=== PATIENT | female | born 1955 | race Caucasian/White ===

== ENCOUNTER 2022-09-16 06:02 | Day surgery (SDC) | payer MEDICARE, OTHER ==
[2022-09-14 16:16] LABS: BASOPHILS # (AUTO) 0.1 X10'3 (0-0.2); BASOPHILS % (AUTO) 0.7 % (0-1); EOSINOPHILS # (AUTO) 0.3 X10'3 (0-0.9); EOSINOPHILS % (AUTO) 4.2 % (0-6); LYMPHOCYTES # (AUTO) 1.8 X10'3 (1.1-4.8); LYMPHOCYTES % (AUTO) 22.7 % (21-51); MEAN CORPUSCULAR HEMOGLOBIN 30.3 PG (27.0-31.0); MEAN CORPUSCULAR HGB CONC 33.1 g/dL (33.0-36.5); MEAN CORPUSCULAR VOLUME 91.4 FL (78-98); MEAN PLATELET VOLUME 8.1 FL (7.4-10.4); MONOCYTES # (AUTO) 0.8 X10'3 (0-0.9); NEUTROPHILS % (AUTO) 62.4 % (42-75); PRE OP HEMATOCRIT 31.3 % (35.0-45.0); PRE OP PLATELET COUNT 221 X10'3 (140-440); RED BLOOD COUNT 3.42 X10'6 (4.20-5.60); RED CELL DISTRIBUTION WIDTH 13.2 % (11.5-14.5)
[2022-09-14 16:17] LABS: PRE OP HEMOGLOBIN 10.3 g/dL (12.0-16.0)
[2022-09-14 16:48] LABS: CLARITY,URINE SLIGHTLY CLOUDY (Clear); COLOR,URINE YELLOW (Yellow); GLUCOSE, URINE NEGATIVE (Neg); KETONES,URINE NEGATIVE (Neg); LEUKOCYTE ESTERASE ,URINE NEGATIVE (Neg); NITRITES, URINE NEGATIVE (Neg); OCCULT BLOOD,URINE NEGATIVE (Neg); PROTEIN,URINE 100 mg/dl (Neg); UA COLLECTION TYPE CLN CATCH MIDSTREAM; UROBILINOGEN,URINE 0.2 E.U/dL (0.2-1.0)
[2022-09-14 16:55] LABS: HYALINE CASTS 0-3 /LPF (NEGATIVE); MUCUS STRANDS FEW /LPF (Neg); SQUAMOUS EPITHELIAL CELL,UR MANY /LPF (FEW)
[2022-09-14 16:56] LABS: BACTERIA,URINE FEW /HPF (Neg); RBC,URINE 0-2 /HPF (0-2); WBC,URINE 0-4 /HPF (0-4)
[2022-09-14 16:58] LABS: ALBUMIN 3.8 G/DL (3.4-5.0); ALBUMIN/GLOBULIN RATIO 1.2 (1.1-1.5); ALKALINE PHOSPHATASE 75 IU/L (46-116); BLOOD UREA NITROGEN 39 MG/DL (7-18); BUN/CREATININE RATIO 11.6 (6.6-38.0); CALCIUM 9.7 MG/DL (8.5-10.1); CREATININE 3.37 MG/DL (0.40-0.90); PRE OP ALT 28 U/L (30-65); PRE OP AST 34 U/L (10-37); PRE OP BILIRUB, TOTAL 0.4 MG/DL (0.0-1.0); PRE OP GLUCOSE 103 MG/DL (70-104); TOTAL CARBON DIOXIDE 18.4 MMOL/L (24-32); TOTAL PROTEIN 7.1 G/DL (6.4-8.2); eGFR 14 ML/MIN
[2022-09-14 17:11] LABS: CHLORIDE 106 MMOL/L (99-107); PRE OP ANION GAP 12 (8-16); PRE OP POTASSIUM 4.6 MMOL/L (3.4-5.1); PRE OP SODIUM 136 MMOL/L (135-145)
[2022-09-16] VITALS (13 sets, daily range): BP systolic 95–130; BP diastolic 52–71
[~2022-09-16] VITALS: Ht 172.7 cm; Wt 82.3 kg
[~2022-09-16 06:02] MED LIST: ACET-1008 PO; ACET-1059 PO; DOCUMENT DATE & TIME OF BETA-BLOCKER PO ONE; ERGO500054 PO; FURO40TA4 PO; HYDR-4070 PO; LABE100T8 PO; LISI40TA13 PO; ROSU40TA PO; SERT50TA PO; TRAZ-256 PO; clindamycin-Cleocin 900mg/D5W 50 ML IV ONE; famotidine 20mg tablet PO ONE; normal saline 500ml IV soln 500 ML IV SCH
[2022-09-16] MEDS ORDERED: BUPIVAcaine 0.5% inj/PF 0 ML ONE (08:45)
[2022-09-16] MEDS ORDERED: LIDOcaine 1% 30ml preserv. free vial ONE (08:45)
[2022-09-16] MEDS ORDERED: heparin 10,000 units/1 ML INJ ONE (08:45)
[2022-09-16] MEDS ORDERED: ondansetron/PF 4mg/2ml inj ONE (09:11)
[2022-09-16] MEDS ORDERED: sevoflurane 250ml liquid IH ONE (09:11)
[2022-09-16] MEDS ORDERED: dexamethasone sod phosphate 10mg/ml inj ONE (09:11)
[2022-09-16] MEDS ORDERED: FENTANYL CITRATE/PF 50 MCG/1 ML VIAL ONE (09:18)
[2022-09-16] MEDS ORDERED: midazolam 1 mg/ML 2ml injection ONE (09:19)
[2022-09-16] MEDS ORDERED: heparin 10,000 units/1 ML INJ IR ONE (09:53)
[2022-09-16] MEDS ORDERED: morphine 4 MG/ML inj SYRINge IV PRN (10:10)
[2022-09-16] MEDS ORDERED: ondansetron/PF 4mg/2ml inj IV PRN (10:10)
[2022-09-16] MEDS ORDERED: proCHLORperazine 10 MG/2 ml inj IV PRN (10:10)
[2022-09-16] MEDS ORDERED: ringers solution, lacted 1,000 ML IV SCH (10:10)
[2022-09-16] MEDS ORDERED: morphine 2 MG/ML inj. syringe IV PRN (10:10)
[2022-09-16] MEDS ORDERED: meperidine/PF 25mg/ml syringe IV PRN ×2 (10:10)
[2022-09-16] MEDS ORDERED: ePHEDrine 50MG/ML INJ. ONE (11:03)
[2022-09-16] MEDS ORDERED: propofol inj 20 ML IV ONE (11:03)
[2022-09-16] MEDS ORDERED: heparin 1,000unit/ml 10ml vial 10 ML ONE (11:03)
[2022-09-16] MEDS ORDERED: bacitracin 15gm ointment TP ONE (11:04)
--- NOTE | 2022-09-16 11:20 | NUR ---
Received from OR via [facility], accompanied by Anesthesiologist DR MAXWELL and report given by Anesthesiolgist. PT HAS LMA IN PLACE UPON ARRIVAL FROM OR, ANESTHESIA AT BEDSIDE AND D/C'D. PT PLACED ON BEDSIDE MONITOR, VSS. PT IN SR WITH RATE IN 80'S. PT RECEIVING 8L 02 TO MASK AND TOLERATING WELL WITH O2 SAT >96%. PT IS GROGGY BUT ABLE TO FOLLOW COMMANDS AND ANSWERERS QUESTIONS APPROPRIATELY. PT HAS 20G PIV TO RT HAND WITH NS INFUSING ORDERED. PT HAS DRSG TO LEFT WRIST THAT HAS SCANT AMOUNT OF DRAINAGE NOTED AND HAS BEEN MARKED. PT DENIES PAIN AT THIS TIME. WILL CONTINUE TO ASSESS.
[2022-09-16] MEDS: meperidine/PF 25mg/ml syringe IV PRN ×2 (11:53→12:08)
[2022-09-16] MEDS ORDERED: HYDROcodone/acetaminophen 10/325mg tab PO ONE (12:40)
--- NOTE | 2022-09-16 13:56 | NUR ---
ABLE TO SAFELY AMBULATE AND TRANSFER SELF. IV TAKEN OUT WITHOUT ANY COMPLICATIONS. ALL DISCHARGE INSTRUCTIONS COVERED WITH PATIENT AND ALL QUESTIONS ANSWERED. PATIENT TAKEN OUT VIA WHEELCHAIR TO PERSONAL VEHICLE WHERE FAMILY/FRIEND DROVE PATIENT HOME.
== END 2022-09-16 13:54 | disposition home or self-care (01) ==
LOC: PAS 06:02
PROVIDERS: ATTEND Surgery
DX: I12.0 Hypertensive chronic kidney disease with stage 5 chronic kidney disease or end stage renal disease (principal); N18.6 End stage renal disease; F41.9 Anxiety disorder, unspecified; F32.A Depression, unspecified; G43.909 Migraine, unspecified, not intractable, without status migrainosus; J45.909 Unspecified asthma, uncomplicated; E21.1 Secondary hyperparathyroidism, not elsewhere classified; Z87.891 Personal history of nicotine dependence; Z98.890 Other specified postprocedural states; Z88.0 Allergy status to penicillin; Z88.1 Allergy status to other antibiotic agents; Z88.8 Allergy status to other drugs, medicaments and biological substances; Z80.49 Family history of malignant neoplasm of other genital organs; Z90.710 Acquired absence of both cervix and uterus; Z98.49 Cataract extraction status, unspecified eye; Z79.899 Other long term (current) drug therapy
CPT/HCPCS: 36415; 36830; 80053; 81001; 82948; 85025; C1757; J1100; J1644; J2175; J2250; J2405; J2704; J3010; J3490; J7030; J7040; J7120; Z7506; Z7508; Z7512; A4215; A4618; A7000; S0020

== ENCOUNTER 2022-10-07 08:46 | Day surgery (SDC) | payer MEDICARE, OTHER ==
[2022-09-29 13:59] LABS: CLARITY,URINE SLIGHTLY CLOUDY (Clear); COLOR,URINE YELLOW (Yellow); GLUCOSE, URINE NEGATIVE (Neg); KETONES,URINE NEGATIVE (Neg); LEUKOCYTE ESTERASE ,URINE NEGATIVE (Neg); NITRITES, URINE NEGATIVE (Neg); OCCULT BLOOD,URINE NEGATIVE (Neg); PROTEIN,URINE >=300 mg/dl (Neg); UROBILINOGEN,URINE 0.2 E.U/dL (0.2-1.0)
[2022-09-29 14:03] LABS: UA COLLECTION TYPE CLN CATCH MIDSTREAM
[2022-09-29 14:06] LABS: BASOPHILS # (AUTO) 0.1 X10'3 (0-0.2); BASOPHILS % (AUTO) 0.8 % (0-1); EOSINOPHILS # (AUTO) 0.4 X10'3 (0-0.9); EOSINOPHILS % (AUTO) 5.2 % (0-6); LYMPHOCYTES # (AUTO) 2.1 X10'3 (1.1-4.8); LYMPHOCYTES % (AUTO) 24.5 % (21-51); MEAN CORPUSCULAR HEMOGLOBIN 29.5 PG (27.0-31.0); MEAN CORPUSCULAR HGB CONC 32.4 g/dL (33.0-36.5); MEAN CORPUSCULAR VOLUME 91.3 FL (78-98); MEAN PLATELET VOLUME 8.2 FL (7.4-10.4); MONOCYTES # (AUTO) 0.9 X10'3 (0-0.9); MONOCYTES % (AUTO) 10.6 % (2-12); NEUTROPHILS % (AUTO) 58.9 % (42-75); PRE OP HEMATOCRIT 31.9 % (35.0-45.0); PRE OP PLATELET COUNT 203 X10'3 (140-440); RED CELL DISTRIBUTION WIDTH 13.6 % (11.5-14.5)
[2022-09-29 14:10] LABS: BACTERIA,URINE FEW /HPF (Neg); RBC,URINE 0-2 /HPF (0-2); SQUAMOUS EPITHELIAL CELL,UR MODERATE /LPF (FEW); WBC,URINE 0-4 /HPF (0-4)
[2022-09-29 14:11] LABS: PRE OP HEMOGLOBIN 10.3 g/dL (12.0-16.0)
[2022-09-29 14:11] LABS: HYALINE CASTS 0-3 /LPF (NEGATIVE); MUCUS STRANDS NONE SEEN /LPF (Neg); TRANSITIONAL EPI CELLS,URINE FEW /HPF
[2022-09-29 14:19] LABS: ALBUMIN 3.8 G/DL (3.4-5.0); ALBUMIN/GLOBULIN RATIO 1.1 (1.1-1.5); ALKALINE PHOSPHATASE 88 IU/L (46-116); BLOOD UREA NITROGEN 42 MG/DL (7-18); BUN/CREATININE RATIO 13.2 (6.6-38.0); CALCIUM 9.6 MG/DL (8.5-10.1); CHLORIDE 109 MMOL/L (99-107); CREATININE 3.17 MG/DL (0.40-0.90); PRE OP ALT 25 U/L (30-65); PRE OP ANION GAP 13 (8-16); PRE OP AST 23 U/L (10-37); PRE OP BILIRUB, TOTAL 0.3 MG/DL (0.0-1.0); PRE OP GLUCOSE 94 MG/DL (70-104); PRE OP POTASSIUM 4.4 MMOL/L (3.4-5.1); PRE OP SODIUM 141 MMOL/L (135-145); TOTAL CARBON DIOXIDE 18.6 MMOL/L (24-32); TOTAL PROTEIN 7.2 G/DL (6.4-8.2); eGFR 15 ML/MIN
[2022-10-07] VITALS (13 sets, daily range): BP systolic 109–146; BP diastolic 37–85
[~2022-10-07] VITALS: Ht 172.7 cm; Wt 82.0 kg
[~2022-10-07 08:46] MED LIST changes: +LIDOcaine 1% (10mg/ml) 2ml vial SQ ONE; +ceFAZolin inj. 2,000 MG in dextrose 5%-water 100 ML IV ONE; -normal saline 500ml IV soln 500 ML IV SCH; +ringers solution, lacted 1,000 ML IV SCH
[2022-10-07] MEDS ORDERED: normal saline 500ml IV soln 1,000 ML IV SCH (09:35)
[2022-10-07] MEDS ORDERED: LIDOcaine 1% 30ml preserv. free vial ONE (12:10)
[2022-10-07] MEDS ORDERED: BUPIVAcaine/PF 5 mg/ml 10ml ONE (12:12)
[2022-10-07] MEDS ORDERED: sevoflurane 250ml liquid IH ONE (12:40)
[2022-10-07] MEDS ORDERED: midazolam 1 mg/ML 2ml injection ONE (12:48)
[2022-10-07] MEDS ORDERED: fentaNYL/PF 50MCG/1 ML 2ML syringe ONE (12:56)
[2022-10-07] MEDS ORDERED: propofol inj 20 ML IV ONE (13:01)
[2022-10-07] MEDS ORDERED: 0.9 % SODIUM CHLORIDE 10 ML VIAL ONE (13:01)
[2022-10-07] MEDS ORDERED: heparin 10,000 units/1 ML INJ ONE (13:01)
[2022-10-07] MEDS ORDERED: dexamethasone sod phosphate 4mg/ml inj. ONE (13:02)
[2022-10-07] MEDS ORDERED: ondansetron/PF 4mg/2ml inj ONE (13:02)
[2022-10-07] MEDS ORDERED: ePHEDrine 50MG/ML INJ. ONE (13:02)
[2022-10-07] MEDS ORDERED: LIDOcaine 2% (20mg/ml) 5ml vial ONE (13:02)
[2022-10-07] MEDS ORDERED: heparin 1,000unit/ml 10ml vial 0 ML ONE (13:15)
[2022-10-07] MEDS ORDERED: ondansetron/PF 4mg/2ml inj IV PRN (14:05)
[2022-10-07] MEDS ORDERED: hydrALAZINE 20mg/ml inj. IV PRN (14:05)
[2022-10-07] MEDS ORDERED: HYDROmorphone/PF 0.2 MG/ML SYRINGE IV PRN (14:05)
[2022-10-07] MEDS ORDERED: labetalol 20mg/4ml (5mg/ml) syringe IV PRN (14:05)
[2022-10-07] MEDS ORDERED: morphine 2 MG/ML inj. syringe IV PRN (14:05)
[2022-10-07] MEDS ORDERED: proCHLORperazine 10 MG/2 ml inj IV PRN (14:05)
[2022-10-07] MEDS ORDERED: acetaminophen 1,000mg/100ml IV 100 ML IV PRN (14:05)
[2022-10-07] MEDS ORDERED: ringers solution, lacted 1,000 ML IV SCH (14:05)
--- NOTE | 2022-10-07 14:05 | NUR ---
PT IS ABLE TO SAFELY AMBULATE AND TRANSFER SELF. IV TAKEN OUT WITHOUT ANY COMPLICATIONS. ALL DISCHARGE INSTRUCTIONS COVERED WITH PATIENT AND ALL QUESTIONS ANSWERED. PATIENT TAKEN OUT VIA WHEELCHAIR TO PERSONAL VEHICLE WHERE DROVE PATIENT HOME. Addendum: 10/07/22 at 1705 by Brittney De La Cruz RN DISCHARGE NOTE 1605- PT IS ABLE TO SAFELY AMBULATE AND TRANSFER SELF. IV TAKEN OUT WITHOUT ANY COMPLICATIONS. ALL DISCHARGE INSTRUCTIONS COVERED WITH PATIENT AND ALL QUESTIONS ANSWERED. PATIENT TAKEN OUT VIA WHEELCHAIR TO PERSONAL VEHICLE WHERE DROVE PATIENT HOME.
--- NOTE | 2022-10-07 14:15 | NUR ---
Received from OR via [facility], accompanied by Anesthesiologist DR CRUZ and report given by Anesthesiolgist. PT GROGGY BUT RESPONDS TO VERBAL STIMULI. PT PLACED ON BEDSIDE MONITOR, VSS. PT IS RECEIVING 8L O2 TO MASK AND TOLERATING WELL WITH 02 SAT >96%. WILL TITRATE DOWN PT TOLERATES. PT HAS 20G PIV TO RT HAND WITH NS INFUSING AT TKO ORDERED. PT HAS INCISION TO LEFT FA AND AC WITH DERMABOND INTACT. PULSE PALPABLE AND AUDIBLE. PT IS ABLE TO MOVE EXTREMITY AND FINGERS FREELY. PT DENIES PAIN AT THIS TIME. WILL CONTINUE TO ASSESS.
== END 2022-10-07 15:57 | disposition home or self-care (01) ==
LOC: PAS 08:46
PROVIDERS: ATTEND Surgery
DX: I12.0 Hypertensive chronic kidney disease with stage 5 chronic kidney disease or end stage renal disease (principal); N18.6 End stage renal disease; F41.9 Anxiety disorder, unspecified; F31.9 Bipolar disorder, unspecified; E87.20 Acidosis, unspecified; D64.9 Anemia, unspecified; I25.10 Atherosclerotic heart disease of native coronary artery without angina pectoris; G43.909 Migraine, unspecified, not intractable, without status migrainosus; N25.81 Secondary hyperparathyroidism of renal origin; D75.1 Secondary polycythemia; Z87.891 Personal history of nicotine dependence; Z88.0 Allergy status to penicillin; Z88.1 Allergy status to other antibiotic agents; Z88.8 Allergy status to other drugs, medicaments and biological substances; Z79.899 Other long term (current) drug therapy; Z90.710 Acquired absence of both cervix and uterus; Z98.890 Other specified postprocedural states; Z98.41 Cataract extraction status, right eye; Z98.42 Cataract extraction status, left eye
CPT/HCPCS: 36415; 36830; 80053; 81001; 82948; 85025; C1768; J0131; J1100; J1170; J1644; J2250; J2270; J2405; J2704; J3010; J3490; J7030; J7040; J7120; Z7506; Z7508; Z7512; A4215; A4618; A7000

== ENCOUNTER 2022-10-08 12:34 | Outpatient (CLI) | payer MEDICARE, OTHER ==
[~2022-10-08 12:34] MED LIST changes: -DOCUMENT DATE & TIME OF BETA-BLOCKER PO ONE; -LIDOcaine 1% (10mg/ml) 2ml vial SQ ONE; -ceFAZolin inj. 2,000 MG in dextrose 5%-water 100 ML IV ONE; -clindamycin-Cleocin 900mg/D5W 50 ML IV ONE; -famotidine 20mg tablet PO ONE; -ringers solution, lacted 1,000 ML IV SCH
== END 2022-10-08 23:59 | disposition home or self-care (01) ==
LOC: VAS 12:34
PROVIDERS: ATTEND Surgery
DX: R22.32 Localized swelling, mass and lump, left upper limb (principal); R20.2 Paresthesia of skin; R20.0 Anesthesia of skin
CPT/HCPCS: 93990

== ENCOUNTER 2022-11-03 09:53 | Outpatient (CLI) | payer MEDICARE, OTHER | END 2022-11-03 23:59 | disposition home or self-care (01) | LOC: VAS 09:53 | PROVIDERS: ATTEND Surgery | DX: I77.89 Other specified disorders of arteries and arterioles (principal); Z95.828 Presence of other vascular implants and grafts | CPT/HCPCS: 93931 ==

== ENCOUNTER 2023-01-06 12:50 | Outpatient (CLI) | payer MEDICARE, OTHER ==
[~2023-01-06 12:50] MED LIST changes: +ONDA4TAB12 PO
== END 2023-01-06 23:59 | disposition home or self-care (01) ==
LOC: VAS 12:50
PROVIDERS: ATTEND Surgery
DX: T82.898A Other specified complication of vascular prosthetic devices, implants and grafts, initial encounter (principal); Z95.828 Presence of other vascular implants and grafts; Y83.8 Other surgical procedures as the cause of abnormal reaction of the patient, or of later complication, without mention of misadventure at the time of the procedure; Y92.89 Other specified places as the place of occurrence of the external cause
CPT/HCPCS: 93931